=== PATIENT | female | born 1980 | race Caucasian/White ===

== ENCOUNTER 2016-04-05 10:50 | Emergency (ER) | payer MEDICAID ==
[~2016-04-05] VITALS: Ht 162.6 cm; Wt 56.7 kg
[2016-04-05 11:07] VITALS: BP 121/65
[2016-04-05 11:34] LABS: KETONES,URINE NEGATIVE (NEGATIVE); LEUKOCYTE ESTERASE ,URINE NEGATIVE (NEGATIVE)
[2016-04-05 11:37] LABS: PREGNANCY TEST URINE QUAL NEGATIVE (NEGATIVE)
[2016-04-05 11:38] LABS: ADD UA MICROSCOPIC YES
[2016-04-05] MEDS ORDERED: SULFAMETH/TRIMETH 800/160 MG 1 UDTAB TABLET PO ONE ×2 (11:44→12:00)
[2016-04-05] MEDS ORDERED: CEPHALEXIN MONOHYDRATE 500 MG CAPSULE PO ONE ×2 (11:44→12:00)
[2016-04-05 11:48] LABS: ADD URINE CULTURE NO; WBC,URINE 0-2 /HPF (0-3)
== END 2016-04-05 11:59 | disposition home or self-care (01) ==
LOC: ER 10:58
DX: F41.9 Anxiety disorder, unspecified (principal); Z59.0 Homelessness; F17.210 Nicotine dependence, cigarettes, uncomplicated
CPT/HCPCS: 81000-TC; 84703-TC; A4606; Z7610